=== PATIENT | male | born 1965 | race Caucasian/White ===

== ENCOUNTER 2017-05-07 07:58 | Day surgery (SDC) | payer BC, OTHER ==
[2017-05-06 09:56] VITALS: BMI 28.3
[2017-05-07] MEDS ORDERED: PROPOFOL 20 ML ONE ×10 (08:42→08:43)
[2017-05-07 09:21] VITALS: TEMP 97.8
[2017-05-07 10:51] VITALS: BP 110/70; PULSE 62
--- NOTE | 2017-05-10 12:24 | PATH ---
Surgical Pathology Report Patient Name: ALISSON VELASQUEZ [facility]. Rec. #: [id number] /Age/Gender: 1965 (Age: 51) / M Account: [id number] Location: [facility]-ENDOSCOPY Taken: 05/07/2017 Received: 05/07/2017 Reported: 05/10/2017 Physicians: Hetal Pimentel M.D. Specimen(s) Received A: RECTAL POLYPS BIOPSY B: RIGHT COLON POLYP Clinical History Screening, family history of polyp, cancer Rectal colon polyps, right colon polyp Final Diagnosis A. RECTUM, POLYPS, BIOPSY/POLYPECTOMY: TUBULAR ADENOMA. SEPARATE FRAGMENTS OF HYPERPLASTIC POLYP (x2). B. COLON, RIGHT, POLYP, POLYPECTOMY: FRAGMENTS OF TUBULAR ADENOMA. Electronically Signed Hector Dyson M.D. Gross Description A. Received in formalin, labeled "rectal polyps" are 3 seals, irregular portions of soft tissue ranging from 0.1-0.3 cm in greatest dimension. The specimens are submitted in toto in one cassette. B. Received in formalin, labeled "right colon polyp" are 5 seals, irregular portions of soft tissue ranging from 0.1-0.4 cm in greatest dimension. The specimens are submitted in toto in one cassette. 05/07/201705/07/2017
== END 2017-05-07 10:10 | disposition home or self-care (01) ==
LOC: JASU-ENDO 07:58
PROVIDERS: ATTEND Internal Medicine Gastroenterology
PROC: 0DBP8ZX Excision of Rectum, Via Natural or Artificial Opening Endoscopic, Diagnostic (ICD-10-PCS; 2017-05-07)
PROC: 0DBK8ZX Excision of Ascending Colon, Via Natural or Artificial Opening Endoscopic, Diagnostic (ICD-10-PCS; principal; 2017-05-07 09:00)
DX: Z12.11 Encounter for screening for malignant neoplasm of colon (principal); Z80.0 Family history of malignant neoplasm of digestive organs; D12.2 Benign neoplasm of ascending colon; D12.8 Benign neoplasm of rectum; K62.1 Rectal polyp; K64.8 Other hemorrhoids
CPT/HCPCS: 88305-TC

== ENCOUNTER 2023-10-27 04:42 | Day surgery (SDC) | payer BC ==
[2023-10-22 12:04] VITALS: BMI 27.8
[2023-10-27 09:12] VITALS: TEMP 97.7
[2023-10-27 11:02] VITALS: BP 137/86; PULSE 75; RESP 14
== END 2023-10-27 11:02 | disposition home or self-care (01) ==
LOC: JASU-ENDO 04:42
PROVIDERS: ATTEND Internal Medicine Gastroenterology
PROC: 0DBP8ZX Excision of Rectum, Via Natural or Artificial Opening Endoscopic, Diagnostic (ICD-10-PCS; principal; 2023-10-27 10:00)
DX: Z12.11 Encounter for screening for malignant neoplasm of colon (principal); K62.1 Rectal polyp; K64.8 Other hemorrhoids; Z86.010 Personal history of colon polyps; Z83.719 Family history of colon polyps, unspecified